=== PATIENT | female | born 1940 | race African-American/Black ===

== ENCOUNTER → 2017-10-12 | Outpatient (CLI) | payer MEDICARE, MEDICAID ==
[~2017-10-12] MED LIST: ASPI-867 PO; ATOR40TA70 PO; AZOPT BOTHEYE; AZOPT OP; BIMA2.5D4 BOTHEYE; BRIM15DR2 BOTHEYE; BRIM5DRO OP; CIPR2.5D9 RIGHTEYE; LOSA100T14 PO; PRED1DRO RIGHTEYE
== END | disposition home or self-care (01) ==
LOC: MAMMO 10:09
PROVIDERS: ATTEND Specialist
DX: Z12.31 Encounter for screening mammogram for malignant neoplasm of breast (principal)
CPT/HCPCS: 77067

== ENCOUNTER 2018-03-09 13:29 | Emergency (ER) | payer MEDICARE, MEDICAID ==
[~2018-03-09] VITALS: Ht 170.2 cm; Wt 114.0 kg
[2018-03-09 15:19] LABS: CHLORIDE 110 mEq/L (98-107)
[2018-03-09 15:20] LABS: BASOPHILS % 0.3 % (0.0-2.0); EOSINOPHILS % 1.7 % (0.0-5.0); HEMATOCRIT. 34.7 % (36.0-48.0); HEMOGLOBIN. 11.4 g/dL (12.0-16.0); LYMPHOCYTES % 20.6 % (20.0-50.0); MEAN CORPUSCULAR HEMOGLOBIN 25.1 pg (28.0-32.0); MEAN CORPUSCULAR VOLUME 76.6 fL (81.0-99.0); MEAN PLATELET VOLUME 8.6 fl (7.4-10.4); MONOCYTES % 9.2 % (2.0-8.0); NEUTROPHILS % 68.2 % (40.0-76.0); PLATELET 224 x1000/uL (130-400); PROTHROMBIN TIME 10.4 sec (9.1-11.1); RED BLOOD CELL COUNT 4.53 mill/uL (4.2-5.4); RED CELL DISTRIBUTION WIDTH 15.8 % (11.6-14.6)
[2018-03-09 17:41] LABS: CLARITY URINE CLEAR (CLEAR); COLOR URINE YELLOW (YELLOW); KETONES URINE NEGATIVE (NEGATIVE); LEUKOCYTE ESTERASE URINE NEGATIVE (NEGATIVE); NITRITE URINE NEGATIVE (NEGATIVE); OCCULT BLOOD URINE NEGATIVE (NEGATIVE); PROTEIN URINE TRACE (NEGATIVE); SPECIFIC GRAVITY URINE 1.019 (1.005-1.030)
[2018-03-09] MEDS ORDERED: HYDROCODONE/ACETAMINOPHEN 5/325MG TABLET PO ONE (20:15)
[2018-03-09 20:52] VITALS: BP 156/85
== END 2018-03-09 21:05 | disposition home or self-care (01) ==
LOC: ER 15:34
DX: R10.11 Right upper quadrant pain (principal); R10.31 Right lower quadrant pain; R39.15 Urgency of urination; I25.10 Atherosclerotic heart disease of native coronary artery without angina pectoris; E11.9 Type 2 diabetes mellitus without complications; I12.9 Hypertensive chronic kidney disease with stage 1 through stage 4 chronic kidney disease, or unspecified chronic kidney disease; N18.9 Chronic kidney disease, unspecified; Z88.0 Allergy status to penicillin; Z79.82 Long term (current) use of aspirin; Z79.899 Other long term (current) drug therapy; Z90.710 Acquired absence of both cervix and uterus; Z98.890 Other specified postprocedural states
CPT/HCPCS: 36415; 70450; 71045; 71250; 74176; 80053; 81003; 83690; 84484; 85025; 85610; 93005; 99285

== ENCOUNTER 2018-04-11 11:19 | Inpatient (IN) | payer MEDICARE, MEDICAID ==
[~2018-04-11] VITALS: Ht 170.2 cm; Wt 114.3 kg
[2018-04-11 12:34] LABS: CLARITY URINE CLEAR (CLEAR); COLOR URINE YELLOW (YELLOW); KETONES URINE NEGATIVE (NEGATIVE); LEUKOCYTE ESTERASE URINE NEGATIVE (NEGATIVE); NITRITE URINE NEGATIVE (NEGATIVE); OCCULT BLOOD URINE NEGATIVE (NEGATIVE); PROTEIN URINE NEGATIVE (NEGATIVE); SPECIFIC GRAVITY URINE 1.019 (1.005-1.030)
[2018-04-11 12:40] LABS: CHLORIDE 107 mEq/L (98-107)
[2018-04-11 12:54] LABS: *BENZODIAZEPINES SCREEN URINE NEGATIVE (NEGATIVE); METHADONE URINE SCREEN NEGATIVE (NEGATIVE); OPIATES URINE SCREEN PRESUMTIVE POSITIVE (NEGATIVE)
[2018-04-11 12:56] LABS: *BARBITURATES SCREEN URINE NEGATIVE (NEGATIVE); CANNABINOID URINE SCREEN NEGATIVE (NEGATIVE); PHENCYCLIDINE URINE SCREEN NEGATIVE (NEGATIVE)
[2018-04-11 12:59] LABS: *COCAINE SCREEN URINE NEGATIVE (NEGATIVE)
[2018-04-11 13:03] LABS: *AMPHETAMINES SCREEN URINE NEGATIVE (NEGATIVE)
[2018-04-11 14:18] LABS: ETHANOL BLOOD < 10 mg/dL
[2018-04-11 14:19] LABS: D-DIMER 1.31 mg/L FEU (<0.50); PROTHROMBIN TIME 10.3 sec (9.1-11.1)
[2018-04-11] MEDS ORDERED: ASPIRIN 81MG TABLET PO ONE (14:45)
[2018-04-11] MEDS: DEXT 5%/0.45% NACL 1000ML 1,000 ML IV SCH (14:50)
[2018-04-11] MEDS: LOSARTAN POTASSIUM 100 MG TABLET PO SCH (15:00)
[2018-04-11] MEDS ORDERED: ACETAMINOPHEN 650MG SUPP PR PRN (15:00)
[2018-04-11] MEDS ORDERED: CLONIDINE 0.1MG TABLET PO PRN (15:00)
[2018-04-11] MEDS ORDERED: ONDANSETRON 4MG ODT PO PRN (15:00)
[2018-04-11 20:28] LABS: BASOPHILS % 0.8 % (0.0-2.0); HEMATOCRIT. 35.6 % (36.0-48.0); HEMOGLOBIN. 11.7 g/dL (12.0-16.0); LYMPHOCYTES % 16.4 % (20.0-50.0); MEAN CORPUSCULAR HEMOGLOBIN 25.6 pg (28.0-32.0); MEAN PLATELET VOLUME 9.1 fl (7.4-10.4); NEUTROPHILS % 72.8 % (40.0-76.0); PLATELET 220 x1000/uL (130-400); RED BLOOD CELL COUNT 4.57 mill/uL (4.2-5.4); RED CELL DISTRIBUTION WIDTH 16.4 % (11.6-14.6)
[2018-04-11 23:00] VITALS: BP 189/88
[2018-04-12] VITALS: BP 189/88
[2018-04-12] MEDS: ATORVASTATIN CALCIUM 20MG TABLET PO SCH ×2 (00:17→21:20)
[2018-04-12] MEDS ORDERED: DEXTROSE 50% WATER 50ML SYRINGE IV PRN (01:30)
[2018-04-12] MEDS ORDERED: FURO-151 PO (02:37)
[2018-04-12 04:00] VITALS: BP 137/68
[2018-04-12 06:53] LABS: BASOPHILS % 0.4 % (0.0-2.0); EOSINOPHILS % 1.5 % (0.0-5.0); HEMATOCRIT. 29.9 % (36.0-48.0); LYMPHOCYTES % 18.2 % (20.0-50.0); MEAN CORPUSCULAR HEMOGLOBIN 25.7 pg (28.0-32.0); MEAN CORPUSCULAR VOLUME 76.7 fL (81.0-99.0); MEAN PLATELET VOLUME 8.6 fl (7.4-10.4); MONOCYTES % 9.6 % (2.0-8.0); NEUTROPHILS % 70.3 % (40.0-76.0); PLATELET 178 x1000/uL (130-400); RED CELL DISTRIBUTION WIDTH 15.5 % (11.6-14.6)
[2018-04-12] MEDS: BLOOD SUGAR DIAGNOSTIC STRIP TEST SCH ×4 (06:56→21:21)
[2018-04-12 07:00] LABS: CHLORIDE 110 mEq/L (98-107)
[2018-04-12 07:08] LABS: HDL CHOLESTEROL 43 mg/dL (40-59); LDL CHOLESTEROL 97 mg/dL (5-100)
[2018-04-12] MEDS: DEXT 5%/0.45% NACL 1000ML 1,000 ML IV SCH (07:30)
[2018-04-12] MEDS: INSULIN LISPRO 100 UNITS/ML SUBCUT SCH ×4 (07:50→21:00)
[2018-04-12 08:00] VITALS: BP 152/73
[2018-04-12] MEDS: PREDNISOLONE ACETATE 1% OPHTH DROPS 1ML RIGHTEYE SCH (08:33)
[2018-04-12] MEDS: LOSARTAN POTASSIUM 100 MG TABLET PO SCH (08:33)
[2018-04-12 12:00] VITALS: BP 137/76
[2018-04-12] MEDS: AMLODIPINE 5MG TABLET PO SCH ×2 (14:19→21:21)
[2018-04-12 16:00] VITALS: BP 148/67
[2018-04-12 20:00] VITALS: BP 122/58
[2018-04-13] VITALS: BP 146/65
[2018-04-13 04:00] VITALS: BP 153/73
[2018-04-13] MEDS: BLOOD SUGAR DIAGNOSTIC STRIP TEST SCH ×4 (06:44→20:19)
[2018-04-13] MEDS: INSULIN LISPRO 100 UNITS/ML SUBCUT SCH ×4 (07:50→20:19)
[2018-04-13 08:00] VITALS: BP 165/71
[2018-04-13 08:04] LABS: PHOSPHORUS 3.6 mg/dL (2.5-4.9)
[2018-04-13] MEDS: PREDNISOLONE ACETATE 1% OPHTH DROPS 1ML RIGHTEYE SCH ×2 (09:00→09:37)
[2018-04-13] MEDS: LOSARTAN POTASSIUM 100 MG TABLET PO SCH (09:37)
[2018-04-13] MEDS: AMLODIPINE 5MG TABLET PO SCH ×2 (09:37→20:42)
[2018-04-13 09:52] LABS: BASOPHILS % 0.6 % (0.0-2.0); EOSINOPHILS % 2.3 % (0.0-5.0); HEMATOCRIT. 34.4 % (36.0-48.0); HEMOGLOBIN. 11.4 g/dL (12.0-16.0); LYMPHOCYTES % 19.5 % (20.0-50.0); MEAN CORPUSCULAR HEMOGLOBIN 25.6 pg (28.0-32.0); MEAN CORPUSCULAR VOLUME 77.6 fL (81.0-99.0); MEAN PLATELET VOLUME 8.8 fl (7.4-10.4); MONOCYTES % 8.6 % (2.0-8.0); PLATELET 199 x1000/uL (130-400); RED BLOOD CELL COUNT 4.43 mill/uL (4.2-5.4)
[2018-04-13 12:00] VITALS: BP 151/80
[2018-04-13] MEDS: ASPIRIN 81MG TABLET PO SCH (13:52)
[2018-04-13] MEDS: METOPROLOL TARTRATE 25MG TABLET PO SCH ×2 (13:52→20:43)
[2018-04-13 16:00] VITALS: BP 133/66
[2018-04-13 20:00] VITALS: BP 152/82
[2018-04-13] MEDS: ATORVASTATIN CALCIUM 20MG TABLET PO SCH (20:41)
[2018-04-13] MEDS ORDERED: ATORVASTATIN CALCIUM 20MG TABLET PO SCH (21:00)
[2018-04-14] VITALS: BP 135/65
[2018-04-14 04:00] VITALS: BP 130/60
[2018-04-14] MEDS: BLOOD SUGAR DIAGNOSTIC STRIP TEST SCH ×4 (06:25→20:21)
[2018-04-14] MEDS: INSULIN LISPRO 100 UNITS/ML SUBCUT SCH ×4 (07:50→20:20)
[2018-04-14 08:00] VITALS: BP 125/65
[2018-04-14 09:58] LABS: BASOPHILS % 0.4 % (0.0-2.0); EOSINOPHILS % 2.2 % (0.0-5.0); HEMATOCRIT. 30.9 % (36.0-48.0); HEMOGLOBIN. 10.4 g/dL (12.0-16.0); LYMPHOCYTES % 20.2 % (20.0-50.0); MEAN CORPUSCULAR HEMOGLOBIN 25.9 pg (28.0-32.0); MEAN PLATELET VOLUME 8.9 fl (7.4-10.4); MONOCYTES % 9.6 % (2.0-8.0); NEUTROPHILS % 67.6 % (40.0-76.0); PLATELET 199 x1000/uL (130-400); RED BLOOD CELL COUNT 4.01 mill/uL (4.2-5.4); RED CELL DISTRIBUTION WIDTH 15.4 % (11.6-14.6)
[2018-04-14 10:04] LABS: AMMONIA 19 uMol/L (<32)
[2018-04-14 10:48] LABS: FOLIC ACID (FOLATE) SERUM 8.7 ng/mL (>5.38)
[2018-04-14] MEDS: ASPIRIN 81MG TABLET PO SCH (10:51)
[2018-04-14] MEDS: PREDNISOLONE ACETATE 1% OPHTH DROPS 1ML RIGHTEYE SCH (10:51)
[2018-04-14] MEDS: METOPROLOL TARTRATE 25MG TABLET PO SCH ×2 (10:52→20:20)
[2018-04-14] MEDS: AMLODIPINE 5MG TABLET PO SCH ×2 (10:52→20:20)
[2018-04-14] MEDS: LOSARTAN POTASSIUM 100 MG TABLET PO SCH (10:52)
[2018-04-14 12:00] VITALS: BP 122/74
[2018-04-14 16:00] VITALS: BP 122/64
[2018-04-14 16:02] LABS: CLARITY URINE CLEAR (CLEAR); COLOR URINE YELLOW (YELLOW); KETONES URINE NEGATIVE (NEGATIVE); LEUKOCYTE ESTERASE URINE NEGATIVE (NEGATIVE); NITRITE URINE NEGATIVE (NEGATIVE); OCCULT BLOOD URINE NEGATIVE (NEGATIVE); PROTEIN URINE NEGATIVE (NEGATIVE); SPECIFIC GRAVITY URINE 1.007 (1.005-1.030); UROBILINOGEN URINE 0.2 E.U./dL (0.2-1.0)
[2018-04-14 20:00] VITALS: BP 130/56
[2018-04-14] MEDS: ATORVASTATIN CALCIUM 20MG TABLET PO SCH (20:20)
[2018-04-15] VITALS: BP 123/69
[2018-04-15 04:00] VITALS: BP 126/68
[2018-04-15] MEDS: BLOOD SUGAR DIAGNOSTIC STRIP TEST SCH ×3 (06:22→17:13)
[2018-04-15] MEDS: INSULIN LISPRO 100 UNITS/ML SUBCUT SCH ×3 (07:39→17:13)
[2018-04-15 07:42] LABS: BASOPHILS % 0.7 % (0.0-2.0); EOSINOPHILS % 2.1 % (0.0-5.0); HEMATOCRIT. 31.4 % (36.0-48.0); HEMOGLOBIN. 10.6 g/dL (12.0-16.0); LYMPHOCYTES % 21.4 % (20.0-50.0); MEAN CORPUSCULAR HEMOGLOBIN 25.9 pg (28.0-32.0); MEAN CORPUSCULAR VOLUME 76.9 fL (81.0-99.0); MONOCYTES % 9.5 % (2.0-8.0); NEUTROPHILS % 66.3 % (40.0-76.0); PLATELET 162 x1000/uL (130-400); RED BLOOD CELL COUNT 4.08 mill/uL (4.2-5.4); RED CELL DISTRIBUTION WIDTH 15.8 % (11.6-14.6)
[2018-04-15 08:00] VITALS: BP 138/69
[2018-04-15] MEDS: METOPROLOL TARTRATE 25MG TABLET PO SCH ×2 (08:26→20:42)
[2018-04-15] MEDS: ASPIRIN 81MG TABLET PO SCH (08:27)
[2018-04-15] MEDS: LOSARTAN POTASSIUM 100 MG TABLET PO SCH (08:27)
[2018-04-15] MEDS: AMLODIPINE 5MG TABLET PO SCH ×2 (08:27→20:42)
[2018-04-15] MEDS: PREDNISOLONE ACETATE 1% OPHTH DROPS 1ML RIGHTEYE SCH (09:00)
[2018-04-15 12:00] VITALS: BP 120/63
[2018-04-15] MEDS: CLOPIDOGREL 75MG TABLET PO SCH (12:28)
[2018-04-15 16:00] VITALS: BP 134/65
[2018-04-15 20:00] VITALS: BP 132/66
[2018-04-15] MEDS: ATORVASTATIN CALCIUM 20MG TABLET PO SCH (20:42)
[2018-04-15] MEDS: BRIMONIDINE 0.2% OPHTH DROPS 5ML BOTHEYE SCH (22:43)
[2018-04-16] VITALS: BP 130/60
[2018-04-16 04:00] VITALS: BP 136/77
[2018-04-16 07:13] LABS: BASOPHILS % 0.8 % (0.0-2.0); EOSINOPHILS % 2.2 % (0.0-5.0); HEMOGLOBIN. 10.5 g/dL (12.0-16.0); LYMPHOCYTES % 21.3 % (20.0-50.0); MEAN CORPUSCULAR HEMOGLOBIN 26.2 pg (28.0-32.0); MEAN CORPUSCULAR VOLUME 77.4 fL (81.0-99.0); MONOCYTES % 9.1 % (2.0-8.0); NEUTROPHILS % 66.6 % (40.0-76.0); RED BLOOD CELL COUNT 4.01 mill/uL (4.2-5.4); RED CELL DISTRIBUTION WIDTH 15.5 % (11.6-14.6)
[2018-04-16 08:25] VITALS: BP 129/54
[2018-04-16] MEDS: PREDNISOLONE ACETATE 1% OPHTH DROPS 1ML RIGHTEYE SCH (09:00)
[2018-04-16] MEDS: BRIMONIDINE 0.2% OPHTH DROPS 5ML BOTHEYE SCH ×2 (09:01→20:24)
[2018-04-16] MEDS: ASPIRIN 81MG TABLET PO SCH (09:01)
[2018-04-16] MEDS: LOSARTAN POTASSIUM 100 MG TABLET PO SCH (09:02)
[2018-04-16] MEDS: CLOPIDOGREL 75MG TABLET PO SCH (09:02)
[2018-04-16] MEDS: METOPROLOL TARTRATE 25MG TABLET PO SCH ×2 (09:02→20:23)
[2018-04-16] MEDS: AMLODIPINE 5MG TABLET PO SCH ×2 (09:05→20:24)
[2018-04-16] MEDS: ACETAMINOPHEN 325MG TABLET PO PRN ×2 (09:34→20:38)
[2018-04-16 10:01] LABS: PLATELET ESTIMATE NORMAL
[2018-04-16 10:02] LABS: PLATELET 141 x1000/uL (130-400)
[2018-04-16 12:15] VITALS: BP 115/60
[2018-04-16 16:32] VITALS: BP 123/51
[2018-04-16] MEDS: ATORVASTATIN CALCIUM 20MG TABLET PO SCH (20:23)
[2018-04-16 20:40] VITALS: BP 132/61
[2018-04-17 00:23] VITALS: BP 149/79
[2018-04-17 04:00] VITALS: BP 108/49
[2018-04-17 08:05] VITALS: BP 125/67
[2018-04-17] MEDS: METOPROLOL TARTRATE 25MG TABLET PO SCH (10:14)
[2018-04-17] MEDS: CLOPIDOGREL 75MG TABLET PO SCH (10:14)
[2018-04-17] MEDS: LOSARTAN POTASSIUM 100 MG TABLET PO SCH (10:14)
[2018-04-17] MEDS: BRIMONIDINE 0.2% OPHTH DROPS 5ML BOTHEYE SCH (10:15)
[2018-04-17] MEDS: AMLODIPINE 5MG TABLET PO SCH (10:15)
[2018-04-17] MEDS: ASPIRIN 81MG TABLET PO SCH (10:15)
[2018-04-17] MEDS: PREDNISOLONE ACETATE 1% OPHTH DROPS 1ML RIGHTEYE SCH (10:15)
[2018-04-17 12:26] VITALS: BP 117/53
[2018-04-17 13:32] VITALS: BP 117/53
[2018-04-18 14:20] LABS: 25-HYDROXY VITAMIN D3 5.6 ng/mL (.)
== END 2018-04-17 15:25 | disposition home health service (06) | DRG 551 ==
LOC: ER 11:19 → 6WST 15:06 → EDBEDREQTM 15:12 → EDBEDREQ 15:15 → ENRESERV 19:34
PROVIDERS: ADMIT Internal Medicine Nephrology; ATTEND Internal Medicine Nephrology
DX: M51.36 Other intervertebral disc degeneration, lumbar region (principal); G82.50 Quadriplegia, unspecified; I13.0 Hypertensive heart and chronic kidney disease with heart failure and stage 1 through stage 4 chronic kidney disease, or unspecified chronic kidney disease; N17.9 Acute kidney failure, unspecified; I50.30 Unspecified diastolic (congestive) heart failure; M48.061 Spinal stenosis, lumbar region without neurogenic claudication; E87.6 Hypokalemia; I25.10 Atherosclerotic heart disease of native coronary artery without angina pectoris; D64.9 Anemia, unspecified; M48.07 Spinal stenosis, lumbosacral region; E11.22 Type 2 diabetes mellitus with diabetic chronic kidney disease; E78.00 Pure hypercholesterolemia, unspecified; F03.90 Unspecified dementia, unspecified severity, without behavioral disturbance, psychotic disturbance, mood disturbance, and anxiety; H40.9 Unspecified glaucoma; K59.00 Constipation, unspecified; R47.81 Slurred speech; M50.31 Other cervical disc degeneration, high cervical region; N18.3 Chronic kidney disease, stage 3 (moderate); E66.01 Morbid (severe) obesity due to excess calories; Z68.39 Body mass index [BMI] 39.0-39.9, adult; Z86.73 Personal history of transient ischemic attack (TIA), and cerebral infarction without residual deficits; Z90.710 Acquired absence of both cervix and uterus; Z95.5 Presence of coronary angioplasty implant and graft; Z88.0 Allergy status to penicillin; Z79.82 Long term (current) use of aspirin; Z79.899 Other long term (current) drug therapy; Z79.51 Long term (current) use of inhaled steroids
CPT/HCPCS: 36415; 70450; 70551; 71045; 72141; 72146; 72148; 80048; 80053; 80061; 80305; 81003; 82140; 82306; 82550; 82607; 82746; 82962; 83690; 83735; 84100; 84443; 84484; 84630; 85025; 85379; 85610; 87040; 87086; 93005; 93306; 93880; 93970; 97110; 97116; 97162; 97166; 97530; 99285; G0482

== ENCOUNTER 2018-08-12 08:17 | Inpatient (IN) | payer MEDICARE, MEDICAID ==
[~2018-08-12] VITALS: Ht 170.2 cm; Wt 114.3 kg
[~2018-08-12 08:17] MED LIST changes: +ASA5EC PO; -ASPI-867 PO; +FURO-151 PO
[2018-08-12] MEDS ORDERED: LABETALOL HCL 20MG/4ML CARPUJECT IV ONE ×2 (08:45→12:15)
[2018-08-12 09:34] LABS: BASOPHILS % 0.4 % (0.0-2.0); EOSINOPHILS % 1.4 % (0.0-5.0); HEMATOCRIT. 34.6 % (36.0-48.0); HEMOGLOBIN. 11.1 g/dL (12.0-16.0); LYMPHOCYTES % 15.5 % (20.0-50.0); MEAN CORPUSCULAR VOLUME 78.2 fL (81.0-99.0); MEAN PLATELET VOLUME 8.1 fl (7.4-10.4); NEUTROPHILS % 75.7 % (40.0-76.0); PLATELET 203 x1000/uL (130-400); RED BLOOD CELL COUNT 4.43 mill/uL (4.2-5.4); RED CELL DISTRIBUTION WIDTH 15.4 % (11.6-14.6)
[2018-08-12 09:42] LABS: INR 1.1; PROTHROMBIN TIME 11.2 sec (9.1-11.1)
[2018-08-12 09:48] LABS: CHLORIDE 112 mEq/L (98-107)
[2018-08-12] MEDS ORDERED: KETOROLAC 15MG/ML VIAL IV ONE (11:00)
[2018-08-12] MEDS ORDERED: ACETAMINOPHEN 325MG TABLET PO ONE (11:00)
[2018-08-12 11:46] LABS: CLARITY URINE CLEAR (CLEAR); COLOR URINE YELLOW (YELLOW); KETONES URINE NEGATIVE (NEGATIVE); LEUKOCYTE ESTERASE URINE NEGATIVE (NEGATIVE); NITRITE URINE NEGATIVE (NEGATIVE); OCCULT BLOOD URINE TRACE (NEGATIVE); PROTEIN URINE TRACE (NEGATIVE); SPECIFIC GRAVITY URINE 1.014 (1.005-1.030); UROBILINOGEN URINE 0.2 E.U./dL (0.2-1.0)
[2018-08-12] MEDS ORDERED: ONDANSETRON HCL 4MG/2ML INJ IV PRN (14:30)
[2018-08-12] MEDS ORDERED: LOSARTAN POTASSIUM 50 MG TABLET PO SCH (14:30)
[2018-08-12] MEDS ORDERED: DOCUSATE SODIUM 100MG CAPSULE PO PRN (14:30)
[2018-08-12] MEDS ORDERED: DIPHENHYDRAMINE 50MG/ML VIAL IV PRN (14:30)
[2018-08-12] MEDS ORDERED: ACETAMINOPHEN 325MG TABLET PO PRN (14:30)
[2018-08-12] MEDS: CARVEDILOL 3.125 MG TABLET PO SCH (15:55)
[2018-08-12] MEDS: CLONIDINE 0.1MG TABLET PO PRN (15:55)
[2018-08-12 16:47] VITALS: BP 154/88
[2018-08-12 16:50] VITALS: BP 154/88
[2018-08-12] MEDS: ASPIRIN 81MG TABLET PO SCH (18:06)
[2018-08-12] MEDS: AMLODIPINE 5MG TABLET PO SCH (18:08)
[2018-08-12] MEDS: BRIMONIDINE 0.2% OPHTH DROPS 5ML BOTHEYE SCH (18:08)
[2018-08-12 20:00] VITALS: BP 160/74
[2018-08-12 21:24] LABS: CREATINE KINASE 56 IU/L (26-192)
[2018-08-12 21:25] LABS: CREATINE KINASE MB FRACTION < 1.0 ng/mL (0.5-3.6)
[2018-08-12] MEDS: ENOXAPARIN 30MG/0.3ML SYR SUBCUT SCH (21:55)
[2018-08-12] MEDS: ATORVASTATIN CALCIUM 40MG TABLET PO SCH (21:55)
[2018-08-13] VITALS: BP 147/63
[2018-08-13 04:00] VITALS: BP 172/69
[2018-08-13] MEDS: CLONIDINE 0.1MG TABLET PO PRN ×3 (06:08→16:40)
[2018-08-13 07:59] LABS: BASOPHILS % 0.7 % (0.0-2.0); EOSINOPHILS % 2.2 % (0.0-5.0); HEMATOCRIT. 30.3 % (36.0-48.0); HEMOGLOBIN. 9.9 g/dL (12.0-16.0); MEAN CORPUSCULAR HEMOGLOBIN 25.7 pg (28.0-32.0); MEAN CORPUSCULAR VOLUME 78.2 fL (81.0-99.0); MEAN PLATELET VOLUME 8.7 fl (7.4-10.4); MONOCYTES % 9.1 % (2.0-8.0); PLATELET 186 x1000/uL (130-400); RED BLOOD CELL COUNT 3.87 mill/uL (4.2-5.4); RED CELL DISTRIBUTION WIDTH 15.4 % (11.6-14.6)
[2018-08-13 08:06] LABS: CHLORIDE 111 mEq/L (98-107)
[2018-08-13 08:14] LABS: PHOSPHORUS 3.6 mg/dL (2.5-4.9)
[2018-08-13 08:15] LABS: LDL CHOLESTEROL 88 mg/dL (5-100)
[2018-08-13 08:16] LABS: HDL CHOLESTEROL 45 mg/dL (40-59)
[2018-08-13 08:18] LABS: CREATINE KINASE 48 IU/L (26-192)
[2018-08-13 08:20] LABS: CREATINE KINASE MB FRACTION < 1.0 ng/mL (0.5-3.6)
[2018-08-13] MEDS: ASPIRIN 81MG TABLET PO SCH (08:35)
[2018-08-13] MEDS: ENOXAPARIN 30MG/0.3ML SYR SUBCUT SCH ×2 (08:35→20:18)
[2018-08-13] MEDS: CLOPIDOGREL 75MG TABLET PO SCH (08:36)
[2018-08-13] MEDS: AMLODIPINE 5MG TABLET PO SCH ×2 (08:36→20:18)
[2018-08-13] MEDS: BRIMONIDINE 0.2% OPHTH DROPS 5ML BOTHEYE SCH ×2 (08:38→16:40)
[2018-08-13] MEDS: CARVEDILOL 3.125 MG TABLET PO SCH ×2 (08:44→16:40)
[2018-08-13 09:28] VITALS: BP 161/85
[2018-08-13 12:26] VITALS: BP 141/67
[2018-08-13 16:00] VITALS: BP 177/76
[2018-08-13 20:00] VITALS: BP 158/80
[2018-08-13] MEDS: ATORVASTATIN CALCIUM 40MG TABLET PO SCH (20:17)
[2018-08-14] VITALS: BP 157/73
[2018-08-14 04:00] VITALS: BP 171/79
[2018-08-14] MEDS: CLONIDINE 0.1MG TABLET PO PRN (04:29)
[2018-08-14 06:51] LABS: BASOPHILS % 0.4 % (0.0-2.0); HEMATOCRIT. 30.1 % (36.0-48.0); LYMPHOCYTES % 23.2 % (20.0-50.0); MEAN CORPUSCULAR HEMOGLOBIN 25.6 pg (28.0-32.0); MEAN CORPUSCULAR VOLUME 77.5 fL (81.0-99.0); MEAN PLATELET VOLUME 8.7 fl (7.4-10.4); NEUTROPHILS % 63.4 % (40.0-76.0); PLATELET 182 x1000/uL (130-400); RED BLOOD CELL COUNT 3.89 mill/uL (4.2-5.4); RED CELL DISTRIBUTION WIDTH 14.9 % (11.6-14.6)
[2018-08-14 08:00] VITALS: BP 138/64
[2018-08-14] MEDS: CLOPIDOGREL 75MG TABLET PO SCH (08:25)
[2018-08-14] MEDS: ENOXAPARIN 30MG/0.3ML SYR SUBCUT SCH (08:26)
[2018-08-14] MEDS: AMLODIPINE 5MG TABLET PO SCH (08:26)
[2018-08-14] MEDS: BRIMONIDINE 0.2% OPHTH DROPS 5ML BOTHEYE SCH (08:26)
[2018-08-14] MEDS: ASPIRIN 81MG TABLET PO SCH (08:26)
[2018-08-14] MEDS: CARVEDILOL 3.125 MG TABLET PO SCH (08:34)
[2018-08-14] MEDS ORDERED: LOSARTAN POTASSIUM 100 MG TABLET PO SCH (09:00)
[2018-08-14 12:00] VITALS: BP 131/61
[2018-08-14 14:56] VITALS: BP 131/61
== END 2018-08-14 15:31 | disposition home or self-care (01) | DRG 304 ==
LOC: ER 08:17 → 7WST 12:41 → EDBEDREQ 12:43 → ENRESERV 15:19
PROVIDERS: ADMIT Internal Medicine Nephrology; ATTEND Internal Medicine Nephrology
DX: I16.0 Hypertensive urgency (principal); N17.0 Acute kidney failure with tubular necrosis; I50.32 Chronic diastolic (congestive) heart failure; N18.9 Chronic kidney disease, unspecified; E11.22 Type 2 diabetes mellitus with diabetic chronic kidney disease; D50.9 Iron deficiency anemia, unspecified; E78.00 Pure hypercholesterolemia, unspecified; E78.5 Hyperlipidemia, unspecified; M48.00 Spinal stenosis, site unspecified; H40.9 Unspecified glaucoma; I13.0 Hypertensive heart and chronic kidney disease with heart failure and stage 1 through stage 4 chronic kidney disease, or unspecified chronic kidney disease; I25.10 Atherosclerotic heart disease of native coronary artery without angina pectoris; Z79.899 Other long term (current) drug therapy; Z82.49 Family history of ischemic heart disease and other diseases of the circulatory system; Z91.14 Patient's other noncompliance with medication regimen; Z90.710 Acquired absence of both cervix and uterus; Z91.19 Patient's noncompliance with other medical treatment and regimen; Z95.5 Presence of coronary angioplasty implant and graft; Z88.0 Allergy status to penicillin; Z79.4 Long term (current) use of insulin
CPT/HCPCS: 36415; 76770; 80048; 80061; 82550; 82553; 83036; 83735; 84100; 84443; 84484; 93005; 93306; 93970; 96374; 96375; 99285; J1650; J1885; J3490

== ENCOUNTER → 2021-03-02 | Outpatient (CLI) | payer MEDICARE, MEDICAID ==
[~2021-03-02] MED LIST changes: -ASA5EC PO; +ASPI-867 PO; +CIPR2.5D13 RIGHTEYE; -CIPR2.5D9 RIGHTEYE; -LOSA100T14 PO; +LOSA100T32 PO
== END | disposition home or self-care (01) ==
LOC: MAMMO 10:14
PROVIDERS: ATTEND Surgery
DX: Z12.31 Encounter for screening mammogram for malignant neoplasm of breast (principal); N63.11 Unspecified lump in the right breast, upper outer quadrant
CPT/HCPCS: 77063; 77067

== ENCOUNTER → 2021-03-12 | Outpatient (CLI) | payer MEDICARE, MEDICAID | END | disposition home or self-care (01) | LOC: RAD 09:08 | PROVIDERS: ATTEND Surgery | DX: N63.10 Unspecified lump in the right breast, unspecified quadrant (principal); N64.89 Other specified disorders of breast; Z85.3 Personal history of malignant neoplasm of breast | CPT/HCPCS: 76642; 77065 ==

== ENCOUNTER → 2021-09-30 | Outpatient (CLI) | payer MEDICARE, MEDICAID | END | disposition home or self-care (01) | LOC: MAMMO 10:31 | PROVIDERS: ATTEND Internal Medicine Hematology & Oncology | DX: C50.411 Malignant neoplasm of upper-outer quadrant of right female breast (principal); R92.1 Mammographic calcification found on diagnostic imaging of breast; Z90.10 Acquired absence of unspecified breast and nipple | CPT/HCPCS: 76641; 77066 ==

== ENCOUNTER 2021-11-06 03:34 | Inpatient (IN) | payer MEDICARE, MEDICAID ==
[~2021-11-06] VITALS: Ht 170.2 cm; Wt 101.6 kg
[2021-11-06] MEDS ORDERED: ASPIRIN 81MG TABLET PO ONE (04:00)
[2021-11-06] MEDS ORDERED: NITROGLYCERIN 0.4MG TABLET SL SL PRN (04:00)
[2021-11-06 04:06] LABS: BASOPHILS % 0.7 % (0.0-2.0); HEMATOCRIT. 31.6 % (36.0-48.0); HEMOGLOBIN. 10.1 g/dL (12.0-16.0); LYMPHOCYTES % 17.2 % (20.0-50.0); MEAN CORPUSCULAR HEMOGLOBIN 25.1 pg (28.0-32.0); MEAN CORPUSCULAR VOLUME 78.6 fL (81.0-99.0); MEAN PLATELET VOLUME 8.2 fl (7.4-10.4); MONOCYTES % 9.9 % (2.0-8.0); NEUTROPHILS % 71.2 % (40.0-76.0); PLATELET 191 x1000/uL (130-400); RED BLOOD CELL COUNT 4.02 mill/uL (4.2-5.4); RED CELL DISTRIBUTION WIDTH 15.5 % (11.6-14.6)
[2021-11-06 04:14] LABS: CHLORIDE 112 mEq/L (98-107)
[2021-11-06] MEDS ORDERED: SODIUM CHLORIDE 0.9% 1,000 ML IV ONE (05:15)
[2021-11-06] MEDS ORDERED: HYDRALAZINE 20MG/ML VIAL IV NR (11:00)
[2021-11-06] MEDS ORDERED: ONDANSETRON HCL 4MG/2ML INJ IV PRN (11:30)
[2021-11-06] MEDS ORDERED: CLONIDINE 0.1MG TABLET PO PRN (11:30)
[2021-11-06 12:00] VITALS: BP 156/84
[2021-11-06] MEDS ORDERED: REGADENOSON 0.4 MG/5 ML IV NR (12:30)
[2021-11-06] MEDS: AMLODIPINE 10MG TABLET PO SCH (12:30)
[2021-11-06 13:01] VITALS: BP 204/76
[2021-11-06] MEDS: NITROGLYCERIN OINT 1GM/INCH UDPKT TD SCH ×3 (14:00→21:12)
[2021-11-06] MEDS: SODIUM CHLORIDE 0.45% 1,000 ML IV SCH (14:42)
[2021-11-06] MEDS: CLONIDINE 0.1MG TABLET PO SCH ×2 (14:43→21:11)
[2021-11-06 16:00] VITALS: BP 150/79
[2021-11-06] MEDS ORDERED: ZINC OXIDE 20% OINT 30GM TOP SCH (17:00)
[2021-11-06 20:00] VITALS: BP 145/68
[2021-11-06] MEDS: ACETAMINOPHEN 325MG TABLET PO PRN (21:10)
[2021-11-07] VITALS: BP 140/66
[2021-11-07] MEDS: SODIUM CHLORIDE 0.45% 1,000 ML IV SCH ×2 (03:22→12:45)
[2021-11-07 04:00] VITALS: BP 124/57
[2021-11-07] MEDS: NITROGLYCERIN OINT 1GM/INCH UDPKT TD SCH ×3 (06:00→22:00)
[2021-11-07] MEDS: CLONIDINE 0.1MG TABLET PO SCH ×3 (06:30→22:04)
[2021-11-07 08:00] VITALS: BP 133/67
[2021-11-07] MEDS: BRIMONIDINE 0.2% OPHTH DROPS 5ML BOTHEYE SCH ×3 (09:00→17:00)
[2021-11-07] MEDS: ASPIRIN 81MG TABLET PO SCH (09:25)
[2021-11-07] MEDS: AMLODIPINE 10MG TABLET PO SCH (09:25)
[2021-11-07 10:14] LABS: BASOPHILS % 0.6 % (0.0-2.0); EOSINOPHILS % 1.6 % (0.0-5.0); HEMATOCRIT. 28.6 % (36.0-48.0); LYMPHOCYTES % 17.2 % (20.0-50.0); MEAN CORPUSCULAR HEMOGLOBIN 25.2 pg (28.0-32.0); MEAN CORPUSCULAR VOLUME 80.4 fL (81.0-99.0); MEAN PLATELET VOLUME 8.8 fl (7.4-10.4); MONOCYTES % 10.2 % (2.0-8.0); NEUTROPHILS % 70.4 % (40.0-76.0); PLATELET 60 x1000/uL (130-400); RED BLOOD CELL COUNT 3.55 mill/uL (4.2-5.4)
[2021-11-07 10:26] LABS: CHLORIDE 108 mEq/L (98-107)
[2021-11-07 12:00] VITALS: BP 132/60
[2021-11-07] MEDS: PREDNISOLONE ACETATE 1% OPHTH DROPS 5ML RIGHTEYE SCH ×2 (12:53→17:00)
[2021-11-07 16:00] VITALS: BP 143/76
[2021-11-07 20:00] VITALS: BP 131/67
[2021-11-08] VITALS: BP 129/61
[2021-11-08 04:00] VITALS: BP 110/56
[2021-11-08] MEDS: CLONIDINE 0.1MG TABLET PO SCH ×2 (06:00→13:43)
[2021-11-08] MEDS: NITROGLYCERIN OINT 1GM/INCH UDPKT TD SCH ×2 (06:00→13:43)
[2021-11-08 08:00] VITALS: BP 146/66
[2021-11-08 08:01] LABS: CHLORIDE 112 mEq/L (98-107)
[2021-11-08] MEDS ORDERED: REGADENOSON 0.4 MG/5 ML IV ONE (08:53)
[2021-11-08] MEDS: ASPIRIN 81MG TABLET PO SCH (09:00)
[2021-11-08] MEDS: BRIMONIDINE 0.2% OPHTH DROPS 5ML BOTHEYE SCH (09:00)
[2021-11-08] MEDS: PREDNISOLONE ACETATE 1% OPHTH DROPS 5ML RIGHTEYE SCH ×2 (09:00→12:09)
[2021-11-08] MEDS: AMLODIPINE 10MG TABLET PO SCH (09:00)
[2021-11-08 09:13] LABS: BASOPHILS % 0.6 % (0.0-2.0); EOSINOPHILS % 2.2 % (0.0-5.0); HEMATOCRIT. 27.3 % (36.0-48.0); HEMOGLOBIN. 8.9 g/dL (12.0-16.0); LYMPHOCYTES % 17.1 % (20.0-50.0); MEAN CORPUSCULAR HEMOGLOBIN 25.7 pg (28.0-32.0); MEAN CORPUSCULAR VOLUME 78.6 fL (81.0-99.0); MEAN PLATELET VOLUME 8.7 fl (7.4-10.4); MONOCYTES % 10.6 % (2.0-8.0); NEUTROPHILS % 69.5 % (40.0-76.0); RED BLOOD CELL COUNT 3.47 mill/uL (4.2-5.4); RED CELL DISTRIBUTION WIDTH 15.4 % (11.6-14.6)
[2021-11-08 09:19] LABS: PLATELET 159 x1000/uL (130-400)
[2021-11-08] MEDS: ACETAMINOPHEN 325MG TABLET PO PRN (10:47)
[2021-11-08 11:56] VITALS: BP 131/48
[2021-11-08 16:00] VITALS: BP 123/51
[2021-11-08 16:20] VITALS: BP 110/61
== END 2021-11-08 17:20 | disposition home or self-care (01) | DRG 205 ==
LOC: ER 04:07 → ENRESERV 08:38 → 7EST 10:46
PROVIDERS: ADMIT Internal Medicine; ATTEND Internal Medicine
DX: M94.0 Chondrocostal junction syndrome [Tietze] (principal); N17.0 Acute kidney failure with tubular necrosis; D64.9 Anemia, unspecified; E66.9 Obesity, unspecified; E87.8 Other disorders of electrolyte and fluid balance, not elsewhere classified; N18.9 Chronic kidney disease, unspecified; N63.10 Unspecified lump in the right breast, unspecified quadrant; E11.22 Type 2 diabetes mellitus with diabetic chronic kidney disease; I25.10 Atherosclerotic heart disease of native coronary artery without angina pectoris; I12.9 Hypertensive chronic kidney disease with stage 1 through stage 4 chronic kidney disease, or unspecified chronic kidney disease; Z20.822 Contact with and (suspected) exposure to COVID-19; E78.00 Pure hypercholesterolemia, unspecified; E78.5 Hyperlipidemia, unspecified; Z85.3 Personal history of malignant neoplasm of breast; Z90.710 Acquired absence of both cervix and uterus; Z86.73 Personal history of transient ischemic attack (TIA), and cerebral infarction without residual deficits; Z88.0 Allergy status to penicillin; Z79.899 Other long term (current) drug therapy; Z68.35 Body mass index [BMI] 35.0-35.9, adult; I25.2 Old myocardial infarction; Z95.5 Presence of coronary angioplasty implant and graft
CPT/HCPCS: 36415; 71045; 78452; 80048; 80053; 83036; 83735; 83880; 84484; 85025; 87426; 93005; 93017; 93306; 97162; 97166; 97530; 99285; A9500; J0360; J2785; J7030

== ENCOUNTER 2022-08-10 12:21 | Emergency (ER) | payer MEDICARE, MEDICAID ==
[~2022-08-10] VITALS: Ht 172.7 cm; Wt 95.0 kg
[~2022-08-10 12:21] MED LIST changes: -AZOPT OP; -BRIM5DRO OP
[2022-08-10 13:53] LABS: BASOPHILS % 0.5 % (0.0-2.0); EOSINOPHILS % 0.8 % (0.0-5.0); HEMATOCRIT. 33.5 % (36.0-48.0); MEAN CORPUSCULAR HEMOGLOBIN 26.1 pg (28.0-32.0); MEAN CORPUSCULAR VOLUME 79.5 fL (81.0-99.0); MEAN PLATELET VOLUME 8.7 fl (7.4-10.4); MONOCYTES % 6.2 % (2.0-8.0); NEUTROPHILS % 80.5 % (40.0-76.0); PLATELET 224 x1000/uL (130-400); RED BLOOD CELL COUNT 4.22 mill/uL (4.2-5.4); RED CELL DISTRIBUTION WIDTH 15.3 % (11.6-14.6)
[2022-08-10 13:55] LABS: CHLORIDE 109 mEq/L (98-107)
[2022-08-10 14:08] LABS: ETHANOL BLOOD < 10 mg/dL
[2022-08-10 14:13] LABS: PROTHROMBIN TIME 11.1 sec (9.6-11.0)
[2022-08-10 16:39] VITALS: BP 139/70
[2022-08-10] MEDS: CLONIDINE 0.1MG TABLET PO NR ×2 (16:56→16:57)
== END 2022-08-10 17:35 | disposition home or self-care (01) ==
LOC: ER 12:21 → SUPCPDRO 13:46 → ER 17:35
DX: I10 Essential (primary) hypertension (principal); R07.9 Chest pain, unspecified; I25.10 Atherosclerotic heart disease of native coronary artery without angina pectoris; E78.00 Pure hypercholesterolemia, unspecified; E11.9 Type 2 diabetes mellitus without complications; Z85.3 Personal history of malignant neoplasm of breast; Z90.710 Acquired absence of both cervix and uterus; Z98.890 Other specified postprocedural states; Z88.0 Allergy status to penicillin
CPT/HCPCS: 36415; 71045; 80053; 80320; 83880; 84484; 85025; 93005; 99285; G0480

== ENCOUNTER → 2022-10-27 | Outpatient (CLI) | payer MEDICARE, MEDICAID | END | disposition home or self-care (01) | LOC: MAMMO 09:52 | PROVIDERS: ATTEND Family Medicine Adult Medicine | DX: Z12.31 Encounter for screening mammogram for malignant neoplasm of breast (principal); Z13.820 Encounter for screening for osteoporosis; M81.0 Age-related osteoporosis without current pathological fracture | CPT/HCPCS: 77067; 77080 ==

== ENCOUNTER 2022-11-13 06:16 | Emergency (ER) | payer MEDICARE, MEDICAID ==
[~2022-11-13] VITALS: Ht 170.2 cm; Wt 94.8 kg
[2022-11-13 06:22] VITALS: BP 143/68
[2022-11-13] MEDS ORDERED: ASPIRIN 81MG TABLET PO ONE (06:30)
[2022-11-13 08:16] LABS: BASOPHILS % 0.8 % (0.0-2.0); EOSINOPHILS % 0.9 % (0.0-5.0); HEMATOCRIT. 30.4 % (36.0-48.0); HEMOGLOBIN. 9.9 g/dL (12.0-16.0); LYMPHOCYTES % 13.4 % (20.0-50.0); MEAN CORPUSCULAR HEMOGLOBIN 25.3 pg (28.0-32.0); MEAN CORPUSCULAR VOLUME 77.6 fL (81.0-99.0); MEAN PLATELET VOLUME 8.7 fl (7.4-10.4); NEUTROPHILS % 76.9 % (40.0-76.0); PLATELET 222 x1000/uL (130-400); RED BLOOD CELL COUNT 3.91 mill/uL (4.2-5.4)
[2022-11-13 08:26] LABS: CHLORIDE 110 mEq/L (98-107)
[2022-11-13 08:42] LABS: PARTIAL THROMBOPLASTIN TIME 24.2 sec (23.4-31.0); PROTHROMBIN TIME 11.2 sec (9.6-11.0)
[2022-11-13] MEDS ORDERED: DOXY100T2 MT (09:04)
== END 2022-11-13 09:20 | disposition home or self-care (01) ==
LOC: ER 06:16 → SUPCPDRO 15:16
DX: L03.116 Cellulitis of left lower limb (principal); R07.89 Other chest pain; R06.00 Dyspnea, unspecified; E11.9 Type 2 diabetes mellitus without complications; I10 Essential (primary) hypertension; Z90.710 Acquired absence of both cervix and uterus
CPT/HCPCS: 36415; 71045; 80053; 84484; 85025; 93005; 99285

== ENCOUNTER → 2023-11-28 | Outpatient (CLI) | payer MEDICARE, MEDICAID ==
[~2023-11-28] MED LIST changes: +ASPI-1497 PO; -ASPI-867 PO; -ATOR40TA70 PO; -CIPR2.5D13 RIGHTEYE; +DOXY100T2 MT; -FURO-151 PO; +HYDR100T26 PO; +LETR2.5T7 PO; -LOSA100T32 PO; +LOSA100T33 PO; +NEBI5TAB2 PO; -PRED1DRO RIGHTEYE
== END | disposition home or self-care (01) ==
LOC: MAMMO 10:30
PROVIDERS: ATTEND Family Medicine Adult Medicine
DX: Z12.31 Encounter for screening mammogram for malignant neoplasm of breast (principal); Z00.01 Encounter for general adult medical examination with abnormal findings; M19.012 Primary osteoarthritis, left shoulder; M19.011 Primary osteoarthritis, right shoulder; J98.11 Atelectasis
CPT/HCPCS: 71046; 77063; 77067

== ENCOUNTER → 2025-04-03 | Outpatient (CLI) | payer MEDICARE, MEDICAID ==
[~2025-04-03] MED LIST changes: -ASPI-1497 PO; +ATOR20TA65 PO; -AZOPT BOTHEYE; +AZOPT EACHEYE; -BIMA2.5D4 BOTHEYE; +BIMA2.5D4 EACHEYE; -BRIM15DR2 BOTHEYE; +BRIM15DR2 EACHEYE; +DAPA5TAB MT; +DAPA5TAB PO; +DOCU-422 PO; -DOXY100T2 MT; +FURO20TA4 PO; +GABA-529 PO; +HYDR100T11 PO; -HYDR100T26 PO; +HYDR100T31 MT; -LOSA100T33 PO; +LOSA50TA41 PO; -NEBI5TAB2 PO; +NEBI5TAB9 PO; +NETA2.5D EACHEYE
== END | disposition home or self-care (01) ==
LOC: CT 14:10
PROVIDERS: ATTEND Neurological Surgery
DX: C71.9 Malignant neoplasm of brain, unspecified (principal); S06.5XAA Traumatic subdural hemorrhage with loss of consciousness status unknown, initial encounter; G31.9 Degenerative disease of nervous system, unspecified; G93.89 Other specified disorders of brain; R90.82 White matter disease, unspecified; X58.XXXA Exposure to other specified factors, initial encounter; Y93.89 Activity, other specified; Y92.89 Other specified places as the place of occurrence of the external cause; Y99.8 Other external cause status

== ENCOUNTER → 2025-06-11 | Outpatient (CLI) | payer MEDICARE, MEDICAID | END | disposition home or self-care (01) | LOC: RAD 14:15 | PROVIDERS: ATTEND Internal Medicine Critical Care Medicine | DX: M17.11 Unilateral primary osteoarthritis, right knee (principal); M85.88 Other specified disorders of bone density and structure, other site; M25.861 Other specified joint disorders, right knee; M25.561 Pain in right knee | CPT/HCPCS: 73562 ==

== ENCOUNTER 2025-06-18 10:09 | Inpatient (IN) | payer MEDICARE, MEDICAID ==
[~2025-06-18] VITALS: Ht 170.2 cm; Wt 74.8 kg
[2025-06-18] MEDS: HYDRALAZINE 20MG/ML VIAL IV ONE (11:01)
[2025-06-18 11:32] LABS: BASOPHILS % 0.9 % (0.0-2.0); EOSINOPHILS % 0.5 % (0.0-5.0); HEMATOCRIT. 35.9 % (36.0-48.0); HEMOGLOBIN. 11.1 g/dL (12.0-16.0); LYMPHOCYTES % 14.2 % (20.0-50.0); MEAN PLATELET VOLUME 8.5 fl (7.4-10.4); MONOCYTES % 7.3 % (2.0-8.0); NEUTROPHILS % 77.1 % (40.0-76.0); PLATELET 248 x1000/uL (130-400); RED BLOOD CELL COUNT 4.39 mill/uL (4.2-5.4); RED CELL DISTRIBUTION WIDTH 17.1 % (11.6-14.6)
[2025-06-18 11:42] LABS: CREATININE 1.9 mg/dL (0.6-1.0)
[2025-06-18 11:43] LABS: UREA NITROGEN BLOOD 23.0 mg/dL (9-23)
[2025-06-18 11:45] LABS: ASPARTATE AMINOTRANSFERASE 17 IU/L (<34); BILIRUBIN DIRECT 0.2 mg/dL (<=3.0); BILIRUBIN TOTAL 0.5 mg/dL (0.1-1.0); PROTEIN TOTAL 6.3 g/dL (6.0-8.3)
[2025-06-18] MEDS ORDERED: ONDANSETRON HCL 4MG/2ML INJ IV PRN (11:45)
[2025-06-18] MEDS ORDERED: HYDROCODONE/ACETAMINOPHEN 5/325MG TABLET PO PRN (11:45)
[2025-06-18] MEDS ORDERED: CLONIDINE 0.1MG TABLET PO PRN (11:45)
[2025-06-18] MEDS ORDERED: ACETAMINOPHEN 325MG TABLET PO PRN (11:45)
[2025-06-18] MEDS ORDERED: NALOXONE HCL 0.4MG/ML VIAL IV PRN (12:00)
[2025-06-18 12:13] LABS: TROPONIN I HIGH SENSITIVITY 16 ng/L (3.0-34)
[2025-06-18] MEDS: LIDOCAINE 5% PATCH TOP SCH (12:31)
[2025-06-18] MEDS: ENOXAPARIN 40MG/0.4ML SYR SUBCUT SCH (12:31)
[2025-06-18] MEDS: GABAPENTIN 100MG CAPSULE PO SCH (13:07)
[2025-06-18 14:30] VITALS: BP 157/61; PULSE 59; RESP 18; TEMP 37.0852
[2025-06-18 16:00] VITALS: BP 135/60; PULSE 70; RESP 18; TEMP 36.2; O2SAT 98
[2025-06-18] MEDS: FUROSEMIDE 20MG TABLET PO SCH (19:09)
[2025-06-18 20:00] VITALS: BP 146/56; PULSE 61; RESP 19; TEMP 35.8; O2SAT 99
[2025-06-18] MEDS: ATORVASTATIN CALCIUM 20MG TABLET PO SCH (23:06)
[2025-06-18] MEDS: HYDRALAZINE HCL 100MG TABLET PO SCH (23:07)
[2025-06-19] VITALS: BP 122/51; PULSE 61; RESP 18; TEMP 36.4; O2SAT 100
[2025-06-19] MEDS ORDERED: DEXTROSE 50% WATER 50ML SYRINGE IV PRN (01:00)
[2025-06-19 04:00] VITALS: BP 125/59; PULSE 58; RESP 20; TEMP 36.3; O2SAT 98
[2025-06-19] MEDS: BLOOD SUGAR DIAGNOSTIC STRIP TEST SCH (06:20)
[2025-06-19] MEDS: INSULIN LISPRO 100 UNITS/ML SUBCUT SCH (07:50)
[2025-06-19 08:00] VITALS: BP 134/60; PULSE 58; RESP 18; TEMP 36.55848; TEMP 36.6; O2SAT 100
[2025-06-19] MEDS: NEBIVOLOL HCL 5 MG TABLET PO SCH (09:00)
[2025-06-19] MEDS: LOSARTAN 50 MG TABLET PO SCH (09:57)
[2025-06-19] MEDS: ASPIRIN 81MG EC TABLET PO SCH (09:57)
[2025-06-19] MEDS: LETROZOLE 2.5MG TABLET PO SCH (09:58)
[2025-06-19 12:00] VITALS: BP 124/61; PULSE 124; RESP 18; TEMP 36.3; TEMP 36.55848; O2SAT 100
[2025-06-19] MEDS ORDERED: KETOROLAC 15MG/ML VIAL IV PRN (13:45)
[2025-06-19 16:00] VITALS: BP 119/60; PULSE 64; RESP 18; TEMP 35.5584; TEMP 36.7; O2SAT 100; O2SAT 98
[2025-06-19 20:00] VITALS: BP 124/63; PULSE 67; RESP 19; TEMP 36.1; O2SAT 96
[2025-06-20] VITALS: BP 125/82; PULSE 65; RESP 19; TEMP 36.4; O2SAT 97
[2025-06-20 04:00] VITALS: BP 102/72; PULSE 56; RESP 20; TEMP 36.3; O2SAT 98
[2025-06-20 08:25] LABS: BASOPHILS % 0.6 % (0.0-2.0); EOSINOPHILS % 0.9 % (0.0-5.0); HEMATOCRIT. 36.0 % (36.0-48.0); HEMOGLOBIN. 11.5 g/dL (12.0-16.0); LYMPHOCYTES % 25.0 % (20.0-50.0); MEAN PLATELET VOLUME 8.8 fl (7.4-10.4); MONOCYTES % 9.5 % (2.0-8.0); NEUTROPHILS % 64.0 % (40.0-76.0); PLATELET 207 x1000/uL (130-400); RED BLOOD CELL COUNT 4.51 mill/uL (4.2-5.4); RED CELL DISTRIBUTION WIDTH 16.2 % (11.6-14.6)
[2025-06-20 08:27] LABS: CREATININE 2.4 mg/dL (0.6-1.0); UREA NITROGEN BLOOD 26 mg/dL (9-23)
[2025-06-20 12:00] VITALS: BP 117/51; PULSE 67; RESP 18; TEMP 36; TEMP 36.5; O2SAT 96
[2025-06-20 12:07] VITALS: BP 118/59; PULSE 67; RESP 18; TEMP 97.8
== END 2025-06-20 15:19 | disposition home or self-care (01) | DRG 683 ==
LOC: ER 10:09 → 6WST 13:26 → EDBEDREQTM 13:29 → EDBEDREQ 13:29
PROVIDERS: ADMIT Internal Medicine Nephrology; ATTEND Internal Medicine Nephrology
DX: I12.9 Hypertensive chronic kidney disease with stage 1 through stage 4 chronic kidney disease, or unspecified chronic kidney disease (principal); N18.4 Chronic kidney disease, stage 4 (severe); E11.22 Type 2 diabetes mellitus with diabetic chronic kidney disease; J45.909 Unspecified asthma, uncomplicated; R51.9 Headache, unspecified; E78.5 Hyperlipidemia, unspecified; M25.561 Pain in right knee; I25.10 Atherosclerotic heart disease of native coronary artery without angina pectoris; F17.200 Nicotine dependence, unspecified, uncomplicated; Z55.6 Problems related to health literacy; Z79.82 Long term (current) use of aspirin; Z79.84 Long term (current) use of oral hypoglycemic drugs; Z79.899 Other long term (current) drug therapy; Z85.3 Personal history of malignant neoplasm of breast; Z85.42 Personal history of malignant neoplasm of other parts of uterus; Z88.0 Allergy status to penicillin; Z90.11 Acquired absence of right breast and nipple; Z90.710 Acquired absence of both cervix and uterus; Z91.81 History of falling; Z92.21 Personal history of antineoplastic chemotherapy; Z92.3 Personal history of irradiation; Z95.5 Presence of coronary angioplasty implant and graft
CPT/HCPCS: 36415; 71045; 80048; 80076; 82962; 83036; 83735; 83880; 84484; 85025; 93005; 93970; 96372; 96374; 99285; J0360; J1650